=== PATIENT | male | born 1930 | race Caucasian/White ===

== ENCOUNTER 2017-07-26 22:33 | Inpatient (IN) | payer MEDICARE ==
[~2017-07-26 22:33] MED LIST: ASPI-183 PO; FURO1TAB62 PO; METO50TA PO
[2017-07-26] MEDS ORDERED: SODIUM CHLORIDE 0.9% FLUSH 10 ML FLUSH IV FLUSH PRN (23:00)
[2017-07-26] MEDS ORDERED: NALOXONE HCL 0.4 MG/ML AMP IV PUSH PRN (23:00)
[2017-07-26] MEDS ORDERED: ACETAMINOPHEN 325 MG TAB PO PRN (23:00)
[2017-07-27] VITALS (9 sets, daily range): BP systolic 127–159; BP diastolic 61–86; PULSE 67–88; RESP 16–20; TEMP 96.6–98.3; O2SAT 95–99
[2017-07-27] MEDS: SODIUM CHLOR 0.9% 1000 ML INJ 1,000 ML IV SCH ×5 (02:27→20:31)
[2017-07-27] MEDS: SODIUM CHLORIDE 0.9% FLUSH 10 ML FLUSH IV FLUSH SCH ×2 (08:06→20:31)
[2017-07-27 08:57] LABS: EOSINOPHIL # 0.1 TH/MM3 (0-0.4); EOSINOPHIL % 1.8 % (0.0-4.0); HEMATOCRIT 27.2 % (39.0-51.0); LYMPH % 26.1 % (9.0-44.0); LYMPHOCYTE # 0.9 TH/MM3 (1.0-4.8); MEAN CELL VOLUME 95.5 FL (80.0-100.0); MEAN CORPUSCULAR HEMOGLOBIN 31.7 PG (27.0-34.0); MEAN CORPUSCULAR HGB CONC 33.2 % (32.0-36.0); MEAN PLATELET VOLUME 9.6 FL (7.0-11.0); MONO % 10.2 % (0.0-8.0); MONOCYTE # 0.3 TH/MM3 (0-0.9); NEUT % 60.9 % (16.0-70.0); PLATELET COUNT 139 TH/MM3 (150-450); RED BLOOD COUNT 2.85 MIL/MM3 (4.50-5.90); RED CELL DISTRIBUTION WIDTH 13.8 % (11.6-17.2); WHITE BLOOD COUNT 3.3 TH/MM3 (4.0-11.0)
[2017-07-27 09:01] LABS: CHLORIDE 114 MEQ/L (98-107); SODIUM (NA) 144 MEQ/L (136-145)
[2017-07-27 09:04] LABS: CALCIUM 8.2 MG/DL (8.5-10.1)
[2017-07-27 09:05] LABS: ALBUMIN 3.3 GM/DL (3.4-5.0); BICARBONATE 22.1 MEQ/L (21.0-32.0); BLOOD UREA NITROGEN 26 MG/DL (7-18); GLUCOSE,RANDOM 88 MG/DL (74-106)
[2017-07-27 09:08] LABS: ALT (GPT) 37 U/L (12-78); AST (GOT) 53 U/L (15-37); GLOMERULAR FILTRATION RATE 44 ML/MIN (>89)
[2017-07-27 09:09] LABS: TOTAL BILIRUBIN ADULT 0.9 MG/DL (0.2-1.0)
[2017-07-27 09:10] LABS: TOTAL PROTEIN 6.3 GM/DL (6.4-8.2)
[2017-07-27 09:11] LABS: ALKALINE PHOSPHATASE 51 U/L (45-117)
[2017-07-27] MEDS ORDERED: FUROSEMIDE 20 MG TAB PO SCH (09:45)
[2017-07-27] MEDS: METOPROLOL TARTRATE 50 MG TAB PO SCH ×2 (10:16→20:31)
[2017-07-27] MEDS ORDERED: PEG (High)/E-LYTE SOLN 4000 ML BTL PO ONE ×2 (10:30→16:00)
--- NOTE | 2017-07-27 11:09 | MB ---
cc: Lindsey Khanna MD DATE: 07/27/2017 REFERRING PHYSICIAN: Dr. Chan. REASON FOR CONSULTATION: GI bleed, anemia. HISTORY OF PRESENT ILLNESS: Mr. Ryder is a very pleasant 86-year-old gentleman with multiple medical problems. He states he developed gastroenteritis symptoms back on after eating at a local fast food store. He stated he had some soft stools and fever. He took antibiotics that he usually takes for his chronic cellulitis and states his symptoms got better. No fever or soft stools since then. Yesterday he developed 1 episode of rectal bleed. He came to the emergency room for further evaluation. Today morning, he had, according to the nurse and the patient, a large amount of bright red blood per rectum. He applied a cube of ice and the bleeding stopped. Suspect possible hemorrhoidal bleed. The patient states he is having some difficulty with bowel movements for the last 2 years, mostly he is unable to feel when he has a bowel movement. He does have a history of prostate cancer, on Lupron and never received any radiation therapy or any other type of therapy. He also reports some difficulty swallowing from time to time, especially when he eats fast. He feels that the food gets stuck at the GE junction. No nausea, no vomiting. No weight loss, good appetite. No hematemesis or melena. His last endoscopy and colonoscopy were many years ago. He takes 2 full strength aspirin daily for chronic back pain and underlying heart disease, unclear exactly what type. He also reports having chronic cellulitis that he is treating with antibiotics, that he has an emergency pack from his primary care doctor. PAST MEDICAL HISTORY: Prostate cancer, on Lupron, coronary artery disease. He has a history of mitral valve repair, chronic back pain, chronic cellulitis. ALLERGIES: NAPROXEN. FAMILY HISTORY: No family history of colon cancer or any other GI pathologies. MEDICATIONS AT HOME: He is on aspirin, Lasix, metoprolol. Currently, he is on the same medications here and was added IV fluids. FAMILY HISTORY: He does have a family history of colon cancer. No other GI pathology. SOCIAL HISTORY: Denies smoking, drinking or drug use. CLINICAL EXAMINATION: GENERAL: He is sitting comfortably in bed in no acute distress. VITAL SIGNS: His temperature is 97.9, pulse 74, respirations 20, blood pressure 159/69, pulse oximetry 99. HEENT: PERRLA. Pale. NECK: No JVD. No lymphadenopathy. CHEST: Clear to auscultation and palpation. CARDIOVASCULAR: S1, S2. No murmur. ABDOMEN: Soft, nontender. Bowel sounds are present. CENTRAL NERVOUS SYSTEM: Awake, alert, oriented x 3. No focal signs identified. RECTAL: Rectal examination was done. No indication of blood at this time. IMPRESSION: Gastrointestinal bleed, possible secondary to hemorrhoids or other pathology, like diverticulosis, colitis or polyps. Anemia, most likely chronic. No indication of continuous bleed at this time, change in bowel habits, history of prostate cancer, chronic lumbosacral spine issues, possible nerve compression at the level of the lumbosacral spine. We will investigate further. Dysphagia on and off. Will need endoscopy and possible dilatation. RECOMMENDATIONS: Upper endoscopy with dilatation and colonoscopy will be scheduled in the morning. CT abdomen and pelvis. Monitor hemoglobin and hematocrit closely. Transfuse to keep hemoglobin more than 8. Consider MRI of the lumbosacral spine and the CT is negative if ok with medical team Supportive care. Clear liquid diet today. I would like to thank Dr. Chan for referring him to our office for consultation. Thank you again. We will continue to follow the patient along with you. Lindsey Khanna MD BSB/TL , 10:34 AM , 11:08 AM DEYVI
--- NOTE | 2017-07-27 11:48 | HHI.HP ---
[facility] Service [facility] Primary Care Physician Non-Staff Admission Diagnosis Diagnoses: (1) GI bleeding (2) Hemorrhoids (3) Dysphagia Chief Complaint: rectal bleeding Travel History International Travel<30 Days: No Contact w/Intl Traveler <30 Da: No Traveled to Known Affected Are: No History of Present Illness The patient is a very pleasant 86-year-old male with past medical history of coronary artery disease, mitral valve repair, prostate cancer, chronic cellulitis, chronic back pain. The patient came to the emergency room for further evaluation of rectal bleeding. Patient also says he has a history of hemorrhoids but never bled. Says he had gastroenteritis symptoms on after eating [employer]. He has some soft stools associated with fevers. He took antibiotic that he usually takes for chronic cellulitis as says symptoms got better however her antibiotics finished on Friday. Yesterday he developed one episode of rectal bleeding significant as old the toilet was filled with blood. He came to the emergency room for further evaluation. Also today in the morning he told the nurse he had a large amount of bright red per rectum he applied acute bronchitis and then the bleeding stopped. Patient complains of having constipation for the past 2 years. He also has some difficulty swallowing. Says he gets food stuck in his stomach. No nausea or vomiting. Says he never vomits. There is no associated weight loss. Appetite is good. No hematemesis. Stool is normal color. He had an endoscopy and colonoscopy 5 or 6 years ago. He takes 2 full-strength aspirin daily for chronic back pain and heart problems. Says he has chronic cellulitis and he is treating with antibiotics he has an emergency back on antibiotics from his primary care doctor. He denies any chest pain or shortness of breath. No lightheadedness. No chest pain. Review of Systems Except as stated in HPI: all other systems reviewed are Neg Past Family Social History Past Medical History coronary artery disease, mitral valve repair, prostate cancer, chronic cellulitis, chronic back pain Past Surgical History Left inguinal hernia repair Mitral valve repair in 2005 Reported Medications Reported Meds & Active Scripts Active Reported Aspirin 325 Mg Tab 325 Mg PO BID Lasix (Furosemide) 20 Mg Tab 20 Mg PO DAILY Metoprolol Tartrate 50 Mg Tab 50 Mg PO BID Allergies: Coded Allergies: naproxen (Verified Allergy, Severe, RASH, 07/26/17) Family History Mother had stroke at the age of 62, she at the age of 69. Father had gallbladder problems at the age of 69 Social History Quit smoking 52 years ago. Occasional alcohol use no illicit drug use. Physical Exam Vital Signs Vital Signs Date Time Temp Pulse Resp B/P (MAP) Pulse Ox O2 Delivery O2 Flow Rate FiO2 07/27/17 07:50 97.9 74 20 159/69 (99) 99 07/27/17 07:01 67 07/27/17 03:36 07/27/17 03:02 96.6 76 16 143/72 (95) 98 07/27/17 02:30 76 Physical Exam GENERAL: This is a well-nourished, well-developed patient, in no apparent distress. SKIN: Pale. No rashes, ecchymoses or lesions. Cool and dry. HEAD: Atraumatic. Normocephalic. No temporal or scalp tenderness. EYES: Pupils equal round and reactive. Extraocular motions intact. No scleral icterus. No injection or drainage. ENT: Nose without bleeding, purulent drainage or septal hematoma. Throat without erythema, tonsillar hypertrophy or exudate. Uvula midline. Airway patent. NECK: Trachea midline. No JVD or lymphadenopathy. Supple, nontender, no meningeal signs. CARDIOVASCULAR: Regular rate and rhythm without murmurs, gallops, or rubs. RESPIRATORY: Clear to auscultation. Breath sounds equal bilaterally. No wheezes , rales, or rhonchi. GASTROINTESTINAL: Abdomen soft, non-tender, nondistended. No hepato-splenomegaly , or palpable masses. No guarding. MUSCULOSKELETAL: Extremities without clubbing, cyanosis, or edema. No joint tenderness, effusion, or edema noted. No calf tenderness. Negative Homans sign bilaterally. NEUROLOGICAL: Awake and alert. Cranial nerves II through XII intact. Motor and sensory grossly within normal limits. Five out of 5 muscle strength in all muscle groups. Normal speech. Laboratory Laboratory Tests Test 07/27/17 08:20 White Blood Count 3.3 Red Blood Count 2.85 Hemoglobin 9.0 Hematocrit 27.2 Mean Corpuscular Volume 95.5 Mean Corpuscular Hemoglobin 31.7 Mean Corpuscular Hemoglobin Concent 33.2 Red Cell Distribution Width 13.8 Platelet Count 139 Mean Platelet Volume 9.6 Neutrophils (%) (Auto) 60.9 Lymphocytes (%) (Auto) 26.1 Monocytes (%) (Auto) 10.2 Eosinophils (%) (Auto) 1.8 Basophils (%) (Auto) 1.0 Neutrophils # (Auto) 2.0 Lymphocytes # (Auto) 0.9 Monocytes # (Auto) 0.3 Eosinophils # (Auto) 0.1 Basophils # (Auto) 0.0 CBC Comment DIFF FINAL Differential Comment Blood Urea Nitrogen 26 Creatinine 1.50 Random Glucose 88 Total Protein 6.3 Albumin 3.3 Calcium Level 8.2 Alkaline Phosphatase 51 Aspartate Amino Transf (AST/SGOT) 53 Alanine Aminotransferase (ALT/SGPT) 37 Total Bilirubin 0.9 Sodium Level 144 Potassium Level 3.5 Chloride Level 114 Carbon Dioxide Level 22.1 Anion Gap 8 Estimat Glomerular Filtration Rate 44 Result Diagram: 07/27/1781907/27/17819 Caprini VTE Risk Assessment Caprini VTE Risk Assessment: Mod/High Risk (score >= 2) Caprini Risk Assessment Model Point Value = 1 Point Value = 2 Point Value = 3 Point Value = 5 Age 41-60 Minor surgery BMI > 25 kg/m2 Swollen legs Varicose veins or History of unexplained or recurrent spontaneous Oral contraceptives or hormone replacement Sepsis (< 1 month) Serious lung disease, including pneumonia (< 1 month) Abnormal pulmonary function Acute myocardial infarction Congestive heart failure (< 1 month) History of inflammatory bowel disease Medical patient at bed rest Age 61-74 Arthroscopic surgery Major open surgery (> 45 min) Laparoscopic surgery (> 45 min) Malignancy Confined to bed (> 72 hours) Immobilizing plaster cast Central venous access Age >= 75 History of VTE Family history of VTE Factor V Leiden Prothrombin [id number] Lupus anticoagulant Anticardiolipin antibodies Elevated serum homocysteine Heparin-induced thrombocytopenia Other congenital or acquired thrombophilia Stroke (< 1 month) Elective arthroplasty Hip, pelvis, or leg fracture Acute spinal cord injury (< 1 month) Prophylaxis Regimen Total Risk Factor Score Risk Level Prophylaxis Regimen 0-1 Low Early ambulation 2 Moderate Order ONE of the following: *Sequential Compression Device (SCD) *Heparin 5000 units SQ BID 3-4 Higher Order ONE of the following medications: *Heparin 5000 units SQ TID *Enoxaparin/Lovenox 40 mg SQ daily (WT < 150 kg, CrCl > 30 mL/min) *Enoxaparin/Lovenox 30 mg SQ daily (WT < 150 kg, CrCl > 10-29 mL/min) *Enoxaparin/Lovenox 30 mg SQ BID (WT < 150 kg, CrCl > 30 mL/min) AND/OR *Sequential Compression Device (SCD) 5 or more Highest Order ONE of the following medications: *Heparin 5000 units SQ TID (Preferred with Epidurals) *Enoxaparin/Lovenox 40 mg SQ daily (WT < 150 kg, CrCl > 30 mL/min) *Enoxaparin/Lovenox 30 mg SQ daily (WT < 150 kg, CrCl > 10-29 mL/min) *Enoxaparin/Lovenox 30 mg SQ BID (WT < 150 kg, CrCl > 30 mL/min) AND *Sequential Compression Device (SCD) Assessment and Plan Assessment and Plan Very pleasant 56-year-old male with Gastrointestinal bleed possibly secondary to his hemorrhoids, possible upper GI bleed due to aspirin use Dysphagia H&H so far stable monitor and transfuse if hemoglobin drops below 7 or if patient is symptomatic Clear liquid diet for now, n.p.o. after midnight plan for EGD and colonoscopy tomorrow morning Plan for CT abdomen and pelvis. Consider MRI of the lumbosacral spine if CT is negative Restart home medications as appropriate Hold aspirin DVT prophylaxis SCDs/teds. Chemoprophylaxis is indicated at this time due to GI bleed Discussed Condition With Patient, nurse, GI specialist Marti Yates MD Jul 27, 2017 11:48
[2017-07-27 12:06] LABS: HEMATOCRIT 29.3 % (39.0-51.0); HEMOGLOBIN 9.6 GM/DL (13.0-17.0)
[2017-07-27] MEDS ORDERED: DIATRIZOATE MEGLUM/DIATRIZOATE SOD 9 ML CUP PO ONE (14:00)
--- NOTE | 2017-07-27 18:11 | RADRPT ---
EXAM DATE/TIME: 07/27/2017 17:51 [facility] COMPARISON: No previous studies available for comparison. INDICATIONS : Rectal bleeding. ORAL CONTRAST: Prescribed oral contrast ingested. RADIATION DOSE: 8.99 CTDIvol (mGy) MEDICAL HISTORY : Hypertension. Carcinoma, prostate. Cardiovascular disease SURGICAL HISTORY : Inguinal hernia repair. Mitral valve repair. ENCOUNTER: Initial ACUITY: 2 days PAIN SCALE: 0/10 LOCATION: pelvis TECHNIQUE: Volumetric scanning of the abdomen and pelvis was performed. Using automated exposure control and ad justment of the mA and/or kV according to patient size, radiation dose was kept as low as reasonably achievable to obtain optimal diagnostic quality images. DICOM format image data is available electro nically for review and comparison. FINDINGS: Lower lungs are clear. 1 cm low-density lesion right lobe of the liver nonspecific Spleen is unremarkable Pancreas and adrenals appear normal Small bilateral low-density lesions probably cysts. Incompletely evaluated without contrast. There is no adenopathy. There is no ascites Scattered diverticula are seen throughout the colon most numerous in the sigmoid colon There is evidence for diverticulitis. There is moderate bowel wall thickening in the sigmoid colon Prostate is prominent There is no free fluid. There is no obturator or inguinal adenopathy. Moderate vascular calcifications are noted. Review of bone window reveal slight lumbar scoliosis and extensive degenerative changes. CONCLUSION: 1. Multiple diverticuli throughout the colon worse in the sigmoid colon. No diverticulitis 2. Diverticula are associated with bowel wall thickening. Direct visualization may be of benefit. 3. Extensive degenerative changes in the lumbar spine Jaswinder Cordero MD FACR on July 27, 2017 at 18:04 Board Certified Radiologist. This report was verified electronically.
[2017-07-27 20:35] LABS: HEMATOCRIT 30.3 % (39.0-51.0); HEMOGLOBIN 9.8 GM/DL (13.0-17.0)
[2017-07-28] VITALS (11 sets, daily range): BP systolic 118–163; BP diastolic 58–78; PULSE 69–85; RESP 16–20; TEMP 96–98.8; O2SAT 94–100
[2017-07-28] MEDS: SODIUM CHLOR 0.9% 1000 ML INJ 1,000 ML IV SCH (04:52)
[2017-07-28 06:52] LABS: AUTOMATED NEUTROPHIL # 3.1 TH/MM3 (1.8-7.7); BASOPHIL % 0.9 % (0.0-2.0); EOSINOPHIL # 0.1 TH/MM3 (0-0.4); EOSINOPHIL % 1.6 % (0.0-4.0); HEMATOCRIT 22.2 % (39.0-51.0); HEMOGLOBIN 7.5 GM/DL (13.0-17.0); MEAN CORPUSCULAR HEMOGLOBIN 32.2 PG (27.0-34.0); MEAN CORPUSCULAR HGB CONC 33.9 % (32.0-36.0); MEAN PLATELET VOLUME 9.1 FL (7.0-11.0); MONO % 8.9 % (0.0-8.0); MONOCYTE # 0.4 TH/MM3 (0-0.9); NEUT % 67.6 % (16.0-70.0); PLATELET COUNT 138 TH/MM3 (150-450); RED BLOOD COUNT 2.34 MIL/MM3 (4.50-5.90); RED CELL DISTRIBUTION WIDTH 13.9 % (11.6-17.2); WHITE BLOOD COUNT 4.6 TH/MM3 (4.0-11.0)
[2017-07-28 06:58] LABS: CALCIUM 7.7 MG/DL (8.5-10.1)
[2017-07-28 06:59] LABS: BICARBONATE 22.1 MEQ/L (21.0-32.0)
[2017-07-28 07:02] LABS: CREATININE 1.3 MG/DL (0.60-1.30)
[2017-07-28] MEDS ORDERED: LACTATED RINGER'S 1000 ML INJ 1,000 ML ONE (07:56)
[2017-07-28] MEDS ORDERED: SODIUM CHLOR 0.9% 250 ML INJ 250 ML IV ONE ×2 (08:15→11:45)
[2017-07-28] MEDS: SODIUM CHLORIDE 0.9% FLUSH 10 ML FLUSH IV FLUSH SCH (09:00)
[2017-07-28 09:22] LABS: HEMOGLOBIN 7.6 GM/DL (13.0-17.0)
[2017-07-28] MEDS: METOPROLOL TARTRATE 50 MG TAB PO SCH ×2 (10:00→10:36)
--- NOTE | 2017-07-28 11:43 | HHI.PR ---
Subjective Remarks Patient seen and examined today for follow-up on anemia. Patient has undergone endoscopy this morning. Patient states that he still having loose stools. But there has been no more signs of any bleeding. Patient is doing well. Appetite increased. Vital signs are stable. Afebrile Objective Vitals Vital Signs Date Time Temp Pulse Resp B/P (MAP) Pulse Ox O2 Delivery O2 Flow Rate FiO2 07/28/17 10:00 96.0 80 20 163/75 (104) 100 07/28/17 09:25 72 16 114/58 (76) 98 07/28/17 09:10 70 16 110/68 (82) 99 07/28/17 08:50 98.0 68 14 92/47 (62) 98 07/28/17 07:30 97.4 69 20 146/66 (92) 98 07/28/17 04:00 98.3 79 20 121/58 (79) 97 07/28/17 00:00 96.1 70 20 118/59 (78) 100 07/27/17 23:00 78 07/27/17 20:00 98.3 86 20 151/67 (95) 98 07/27/17 18:15 88 07/27/17 15:50 96.6 71 20 129/61 (83) 99 07/27/17 11:50 98.0 71 20 127/86 (100) 95 I/O 07/27/17 07/27/17 07/27/17 07/28/17 07/28/17 07/28/17 07:00 15:00 23:00 07:00 15:00 23:00 Intake Total 1000 ml 1480 ml Output Total 900 ml Balance 1000 ml 580 ml Intake Oral 1480 ml IV Total 1000 ml Output Urine Total 900 ml # Bowel Movements 7 Result Diagram: 07/28/17 0908 07/28/17 0515 Imaging Last Impressions Abdomen/Pelvis CT 07/27/17 0000 Signed Impressions: Service Date/Time: Thursday, July 27, 2017 17:51 - CONCLUSION: 1. Multiple diverticuli throughout the colon worse in the sigmoid colon. No diverticulitis 2. Diverticula are associated with bowel wall thickening. Direct visualization may be of benefit. 3. Extensive degenerative changes in the lumbar spine Jaswinder Cordero MD FACR Objective Remarks GENERAL: Well-developed, well-nourished, in no acute distress. alert and orientated HEENT: Head is normocephalic without any lesions or masses noted. Facial features are symmetric. Eyes: Extraocular muscles are intact. Conjunctivae were clear. NECK: Supple without any masses. Trachea midline no deviation. No JVD, CARDIAC: Regular rhythm, regular rate. S1/S2 are heard. No murmurs gallops or rubs. LUNGS: Clear to auscultation bilaterally. No wheeze, rhonchi or rales. No use of accessory muscles on inspiration or expiration. ABDOMEN: Soft, nontender. Nondistended. Bowel sounds heard in all 4 quadrants. No organomegaly or masses. Negative rebound, negative guarding EXTREMITIES: No edema, pulses are equal bilaterally. No cyanosis or clubbing NEUROLOGY: Mood and affect appear appropriate. Cranial nerves II through XII grossly intact. Moving all extremities, speech is clear Urinary Catheter: No Vascular Central Line Catheter: No A/P Assessment and Plan Gastrointestinal bleed Possibly secondary to his hemorrhoids, upper GI bleed due to aspirin use Continue to monitor hemoglobin and hematocrit, transfuse a hemoglobin below 8.0 Gastroenterology consulted for further recommendations Status post EGD which did show gastritis, colonoscopy with internal hemorrhoids, diverticuli, no active bleeding Discussed with GI who indicated transfuse 1 unit of packed red blood cells, patient may eat and discharge later after transfusion if hemoglobin improved and patient tolerating food Dysphagia Endoscopy performed which did show stricture, GI physician corrected with dilatation Coronary disease, hypertension Home medications have been continued DVT prevention Sequential compression devices, avoid chemical prophylaxis secondary to GI bleed Discharge Planning Discharge home in stable condition Activity: Ad rodrick. 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
[2017-07-28] MEDS ORDERED: PROT40TA PO (11:47)
--- NOTE | 2017-07-28 11:48 | HHI.DCPOC ---
Discharge Care Plan Diagnosis: (1) GI bleeding (2) Dysphagia (3) Hemorrhoids Goals to Promote Your Health * To prevent worsening of your condition and complications * To maintain your health at the optimal level Directions to Meet Your Goals Take your medications as prescribed Follow your dietary instruction Follow activity as directed Keep your appointments as scheduled Take your immunizations and boosters as scheduled If your symptoms worsen call your PCP, if no PCP go to Urgent Care Center or Emergency Room Smoking is Dangerous to Your Health. Avoid second hand smoke Call the 24-hour hour crisis hotline for domestic abuse at Naresh Reid Jul 28, 2017 11:47
[2017-07-28 19:46] LABS: HEMATOCRIT 26.5 % (39.0-51.0); HEMOGLOBIN 8.9 GM/DL (13.0-17.0)
--- NOTE | 2017-07-29 00:10 | EKG ---
Date Performed: 07/28/2017 Time Performed: 07:34:29 PTAGE: 86 years EKG: Sinus rhythm WITH SINUS ARRHYTHMIA NORMAL ECG NO PREVIOUS TRACING DOCTOR: Marlene Guerrero Interpretating Date/Time 07/29/2017 00:04:25
== END 2017-07-28 20:48 | disposition home or self-care (01) | DRG 379 ==
LOC: PHEDDLT 07-27 01:45 → PH3A 07-27 01:55 → OBSVTOIN 07-28 10:04
PROVIDERS: ADMIT Hospitalist; ATTEND Hospitalist
PROC: 0D758ZZ Dilation of Esophagus, Via Natural or Artificial Opening Endoscopic (ICD-10-PCS; 2017-07-28)
PROC: 0DJD8ZZ Inspection of Lower Intestinal Tract, Via Natural or Artificial Opening Endoscopic (ICD-10-PCS; 2017-07-28)
PROC: 30233N1 Transfusion of Nonautologous Red Blood Cells into Peripheral Vein, Percutaneous Approach (ICD-10-PCS; 2017-07-28)
PROC: 0DB38ZX Excision of Lower Esophagus, Via Natural or Artificial Opening Endoscopic, Diagnostic (ICD-10-PCS; principal; 2017-07-28 08:22)
PROC: 0DB68ZX Excision of Stomach, Via Natural or Artificial Opening Endoscopic, Diagnostic (ICD-10-PCS; 2017-07-28 08:22)
DX: K57.31 Diverticulosis of large intestine without perforation or abscess with bleeding (principal); K22.2 Esophageal obstruction; D64.9 Anemia, unspecified; K64.8 Other hemorrhoids; K29.70 Gastritis, unspecified, without bleeding; I25.10 Atherosclerotic heart disease of native coronary artery without angina pectoris; G89.29 Other chronic pain; M54.9 Dorsalgia, unspecified; K59.00 Constipation, unspecified; I10 Essential (primary) hypertension; Z79.82 Long term (current) use of aspirin; Z87.891 Personal history of nicotine dependence; Z80.0 Family history of malignant neoplasm of digestive organs; Z85.46 Personal history of malignant neoplasm of prostate
CPT/HCPCS: 36430; 74176; 80048; 80053; 85014; 85018; 85025; 85610; 85730; 86850; 86900; 86901; 86920; 88305; 88312; 93005; 96360; 96361; 99285; G0378; J7030; J7120; P9016; Q9963